=== PATIENT | female | born 1930 | race African-American/Black ===

== ENCOUNTER 2019-08-16 16:05 | Inpatient (IN) | payer OTHER, MEDICAID ==
[~2019-08-16] VITALS: Ht 170.2 cm; Wt 59.9 kg
[2019-08-16] MEDS ORDERED: ACETAMINOPHEN 650MG/20.3ML UDC GT PRN (17:45)
[2019-08-16] MEDS ORDERED: IPRATROPIUM/ALBUTEROL 0.5-3(2.5)MG/3ML NEB NEB PRN (17:45)
[2019-08-16] MEDS ORDERED: MAGNESIUM/ALUMINUM HYDROXIDE/SIMETHICONE 30ML UDC PO PRN (17:45)
[2019-08-16] MEDS ORDERED: DOCUSATE SODIUM 100MG CAPSULE PO PRN (17:45)
[2019-08-16] MEDS ORDERED: ONDANSETRON HCL 4MG/2ML INJ IV PRN (17:45)
[2019-08-16] MEDS ORDERED: NA PHOS,M-B/NA PHOS,DI-BA ENEMA 118ML PR PRN (17:45)
[2019-08-16] MEDS ORDERED: ACETAMINOPHEN 325MG TABLET PO PRN (17:45)
[2019-08-16] MEDS ORDERED: DIPHENHYDRAMINE 50MG/ML VIAL IV PRN (17:45)
[2019-08-16] MEDS ORDERED: ACETAMINOPHEN 650MG SUPP PR PRN (17:45)
[2019-08-16] MEDS ORDERED: HYDROCODONE/ACETAMINOPHEN 5/325MG TABLET PO PRN (17:45)
[2019-08-16] MEDS ORDERED: GUAIFENESIN 200MG/10ML SUGAR FREE UDC PO PRN (17:45)
[2019-08-16] MEDS ORDERED: CLONIDINE 0.1MG TABLET PO PRN (17:45)
[2019-08-16] MEDS ORDERED: DILTIAZEM HCL 125 MG in DEXT 5% WATER 100 ML IV ONE (18:00)
[2019-08-16 18:47] LABS: BASOPHILS % 0.7 % (0.0-2.0); EOSINOPHILS % 1.2 % (0.0-5.0); HEMATOCRIT. 38.2 % (36.0-48.0); HEMOGLOBIN. 12.7 g/dL (12.0-16.0); LYMPHOCYTES % 36.7 % (20.0-50.0); MEAN CORPUSCULAR HEMOGLOBIN 28.4 pg (28.0-32.0); MEAN CORPUSCULAR VOLUME 85.4 fL (81.0-99.0); MEAN PLATELET VOLUME 9.3 fl (7.4-10.4); MONOCYTES % 6.9 % (2.0-8.0); NEUTROPHILS % 54.5 % (40.0-76.0); PLATELET 307 x1000/uL (130-400); RED BLOOD CELL COUNT 4.47 mill/uL (4.2-5.4); RED CELL DISTRIBUTION WIDTH 19.7 % (11.6-14.6)
[2019-08-16 18:49] LABS: CHLORIDE 111 mEq/L (98-107)
[2019-08-16 18:55] LABS: ETHANOL BLOOD < 10 mg/dL
[2019-08-16 19:16] LABS: CLARITY URINE TURBID (CLEAR); COLOR URINE DARK YELLOW (YELLOW); KETONES URINE TRACE (NEGATIVE); LEUKOCYTE ESTERASE URINE 3+ (NEGATIVE); NITRITE URINE POSITIVE (NEGATIVE); OCCULT BLOOD URINE 1+ (NEGATIVE); PROTEIN URINE 1+ (NEGATIVE); SPECIFIC GRAVITY URINE 1.021 (1.005-1.030)
[2019-08-16 19:32] LABS: *AMPHETAMINES SCREEN URINE NEGATIVE (NEGATIVE); *BARBITURATES SCREEN URINE NEGATIVE (NEGATIVE); *BENZODIAZEPINES SCREEN URINE NEGATIVE (NEGATIVE); *COCAINE SCREEN URINE NEGATIVE (NEGATIVE); METHADONE URINE SCREEN NEGATIVE (NEGATIVE)
[2019-08-16 19:33] LABS: CANNABINOID URINE SCREEN NEGATIVE (NEGATIVE); OPIATES URINE SCREEN NEGATIVE (NEGATIVE); PHENCYCLIDINE URINE SCREEN NEGATIVE (NEGATIVE)
[2019-08-16] MEDS ORDERED: CEFTRIAXONE 1 G PREMIX 50 ML IV SCH (20:00)
[2019-08-16] MEDS: FAMOTIDINE 20MG/2ML VIAL IV SCH (20:53)
[2019-08-16] MEDS: DEXT 5%/0.45% NACL 1000ML 1,000 ML IV SCH (21:10)
[2019-08-16] MEDS ORDERED: ENOXAPARIN 60MG/0.6ML SYR SUBCUT NR (21:18)
[2019-08-16 22:57] LABS: PROTHROMBIN TIME 10.3 sec (9.6-11.0)
[2019-08-16 23:08] LABS: CREATINE KINASE MB FRACTION 4.1 ng/mL (0.5-3.6)
[2019-08-17] VITALS (7 sets, daily range): BP systolic 105–154; BP diastolic 50–132
[2019-08-17] MEDS ORDERED: POTA20TA82 PO (03:41)
[2019-08-17] MEDS ORDERED: FLUT15.844 BOTHNSTRLS (03:41)
[2019-08-17] MEDS ORDERED: SENN-170 MT (03:41)
[2019-08-17] MEDS ORDERED: HYDR25SU37 RC (03:41)
[2019-08-17] MEDS ORDERED: TOPUD PO (03:41)
[2019-08-17] MEDS ORDERED: MULT-1146 PO (03:41)
[2019-08-17] MEDS ORDERED: BISA10SU62 RC (03:41)
[2019-08-17] MEDS ORDERED: ASCO500C18 PO (03:41)
[2019-08-17] MEDS ORDERED: TRAM150C25 MT (03:41)
[2019-08-17] MEDS ORDERED: MIRT15TA PO (03:41)
[2019-08-17] MEDS ORDERED: AMLO5TAB88 PO (03:41)
[2019-08-17] MEDS: DEXT 5%/0.45% NACL 1000ML 1,000 ML IV SCH (04:40)
[2019-08-17] MEDS: DILTIAZEM HCL 60MG TABLET PO SCH ×4 (06:00→21:21)
[2019-08-17] MEDS: ENOXAPARIN 60MG/0.6ML SYR SUBCUT SCH ×2 (08:26→21:21)
[2019-08-17 08:51] LABS: BASOPHILS % 1.1 % (0.0-2.0); EOSINOPHILS % 1.3 % (0.0-5.0); HEMATOCRIT. 34.2 % (36.0-48.0); HEMOGLOBIN. 11.5 g/dL (12.0-16.0); LYMPHOCYTES % 40.9 % (20.0-50.0); MEAN CORPUSCULAR HEMOGLOBIN 28.5 pg (28.0-32.0); MEAN CORPUSCULAR VOLUME 84.8 fL (81.0-99.0); MEAN PLATELET VOLUME 9.3 fl (7.4-10.4); MONOCYTES % 9.5 % (2.0-8.0); NEUTROPHILS % 47.2 % (40.0-76.0); PLATELET 173 x1000/uL (130-400); RED BLOOD CELL COUNT 4.03 mill/uL (4.2-5.4); RED CELL DISTRIBUTION WIDTH 19.4 % (11.6-14.6)
[2019-08-17 09:17] LABS: CHLORIDE 113 mEq/L (98-107)
[2019-08-17 09:25] LABS: CREATINE KINASE MB FRACTION 4.6 ng/mL (0.5-3.6); LDL CHOLESTEROL 89 mg/dL (5-100)
[2019-08-17 09:26] LABS: CREATINE KINASE 99 IU/L (26-192)
[2019-08-17 09:27] LABS: HDL CHOLESTEROL 63 mg/dL (40-59); T4 FREE 1.09 ng/dL (0.76-1.46)
[2019-08-17] MEDS ORDERED: INFLUENZA VIRUS VACCINE(AFLURIA) 0.5ML SYR IM ONE (12:00)
[2019-08-17] MEDS ORDERED: PNEUMOCOCCAL 23-VAL P-SAC VAC 0.5 ML IM ONE (12:00)
[2019-08-17] MEDS ORDERED: POTASSIUM CHLORIDE INJ 40 MEQ in DEXT 5% WATER 250 ML IV SCH (12:00)
[2019-08-17] MEDS ORDERED: HALOPERIDOL LACTATE 5MG/ML VIAL IM PRN (14:00)
[2019-08-17] MEDS ORDERED: BISACODYL 10MG SUPP PR PRN (14:15)
[2019-08-17 16:10] LABS: VITAMIN B12 SERUM 1343 pg/mL (211-911)
[2019-08-17] MEDS: FAMOTIDINE 20MG/2ML VIAL IV SCH (21:20)
[2019-08-17] MEDS: CEFTRIAXONE 1 G PREMIX 50 ML IV SCH (21:21)
[2019-08-18] VITALS (7 sets, daily range): BP systolic 87–131; BP diastolic 49–70
[2019-08-18] MEDS: LORAZEPAM 0.5MG TABLET PO PRN ×2 (00:23→21:49)
[2019-08-18] MEDS: DEXT 5%/0.45% NACL 1000ML 1,000 ML IV SCH ×2 (03:05→19:45)
[2019-08-18] MEDS: DILTIAZEM HCL 60MG TABLET PO SCH ×3 (06:59→22:00)
[2019-08-18] MEDS: ENOXAPARIN 60MG/0.6ML SYR SUBCUT SCH ×2 (08:21→20:33)
[2019-08-18 08:38] LABS: CHLORIDE 114 mEq/L (98-107)
[2019-08-18 09:57] LABS: HEMATOCRIT 34.1 % (36.0-48.0); HEMOGLOBIN 11.4 g/dL (12.0-16.0); MEAN CORPUSCULAR HEMOGLOBIN 28.7 pg (28.0-32.0); MEAN CORPUSCULAR VOLUME 86.2 fL (81.0-99.0); PLATELET 186 x1000/uL (130-400); RED BLOOD CELL COUNT 3.95 mill/uL (4.2-5.4); RED CELL DISTRIBUTION WIDTH 19.4 % (11.6-14.6)
[2019-08-18] MEDS ORDERED: MEMANTINE HCL 5MG TABLET PO SCH (10:15)
[2019-08-18] MEDS ORDERED: BISACODYL 10MG SUPP PR NR (12:45)
[2019-08-18] MEDS ORDERED: MINERAL OIL ENEMA 133ML PR NR (15:00)
[2019-08-18] MEDS ORDERED: MAGNESIUM 2 G PREMIX 50 ML IV NR (15:00)
[2019-08-18] MEDS ORDERED: POTASSIUM CHLORIDE INJ 40 MEQ in DEXT 5% WATER 250 ML IV NR (15:30)
[2019-08-18] MEDS: CEFTRIAXONE 1 G PREMIX 50 ML IV SCH ×2 (20:57→21:47)
[2019-08-18] MEDS: FAMOTIDINE 20MG/2ML VIAL IV SCH (20:58)
[2019-08-18] MEDS ORDERED: FAMOTIDINE 20MG TABLET PO SCH (21:36)
== END 2019-08-18 23:25 | DRG 640 ==
LOC: ER 16:05 → SUPCPDRO 17:40 → 6EST 18:32 → ENRESERV 23:34 → 6EST 08-17 02:01 → 6WST 08-17 03:48
PROVIDERS: ADMIT Internal Medicine; ATTEND Internal Medicine
DX: R62.7 Adult failure to thrive (principal); G92 Toxic encephalopathy; I82.412 Acute embolism and thrombosis of left femoral vein; K86.1 Other chronic pancreatitis; N39.0 Urinary tract infection, site not specified; F03.91 Unspecified dementia, unspecified severity, with behavioral disturbance; E44.0 Moderate protein-calorie malnutrition; E86.0 Dehydration; E87.6 Hypokalemia; N20.0 Calculus of kidney; M47.819 Spondylosis without myelopathy or radiculopathy, site unspecified; I10 Essential (primary) hypertension; K56.41 Fecal impaction; M16.0 Bilateral primary osteoarthritis of hip; N32.89 Other specified disorders of bladder; Z93.1 Gastrostomy status; Z90.710 Acquired absence of both cervix and uterus; Z79.899 Other long term (current) drug therapy; Z68.20 Body mass index [BMI] 20.0-20.9, adult
CPT/HCPCS: 36415; 71045; 74176; 80048; 80053; 80061; 80305; 80307; 80320; 80329; 81003; 82140; 82378; 82550; 82553; 82607; 83735; 83880; 84132; 84439; 84443; 84484; 85025; 85027; 87077; 87186; 93005; 93970; 96365; 99291; C1893; J0696; J1200; J1650; J3475; J3480; J3490; J7040; J7060; A4315; G0480